=== PATIENT | male | born 1955 | race Caucasian/White ===

== ENCOUNTER 2017-04-26 22:33 | Inpatient (IN) | payer MEDICAID ==
[2017-04-26 22:33] VITALS: BMI 29.5
[2017-04-26] MEDS ORDERED: DiphenhydrAMINE 50 mg/ml Inj IVP STA (22:53)
[2017-04-26] MEDS ORDERED: Albuterol 0.083% Inhal Sol (2.5 mg/3 mL) UD INH STA (22:53)
[2017-04-26] MEDS ORDERED: Sodium Chloride 0.9% 1,000 ML IV STA (22:53)
--- NOTE | 2017-04-26 22:55 | ED PDOC ---
Arrival/HPI - General Chief Complaint: Flu-like Symptoms Time Seen by Provider: 04/26/17 22:46 Historian: Patient - History of Present Illness Narrative History of Present Illness (Text): 04/26/17 22:51 A 62 year old male, whose past medical history includes high platelets, presents to the emergency department complaining of 2 day duration cough, difficulty breathing, and a sudden onset body rash. The patient states that he has been having a fever and the cough for 2 days for which he took Dayquil and Nyquil for his symptoms with no relief. He notes that he also developed a rash over his body that began at his feet and moved up towards his chest. He states that it has been red, hot, and itchy for the past few days. The patient denies chills, headache, dizziness, chest pain, abdominal pain, nausea, vomiting, diarrhea, back pain, neck pain, urinary/bowel changes, or any other complaint. PMD: Dr. Perez Time/Duration: Other (2 days) Symptom Onset: Sudden Symptom Course: Unchanged Activities at Onset: Rest, Light Context: Home Past Medical History - Provider Review Nursing Documentation Reviewed: Yes - Infectious Disease Hx of Infectious Diseases: None - Tetanus Immunization Tetanus Immunization: Unknown - Cardiac Hx Cardiac Disorders: Yes Hx Hypertension: Yes - Pulmonary Hx Respiratory Disorders: No - Neurological Hx Neurological Disorder: No - HEENT Hx HEENT Disorder: No - Renal Hx Renal Disorder: No - Endocrine/Metabolic Hx Endocrine Disorders: No - Hematological/Oncological Hx Blood Disorders: Yes Other/Comment: polycythemia - Integumentary Hx Dermatological Disorder: No - Musculoskeletal/Rheumatological Hx Musculoskeletal Disorders: No - Gastrointestinal Hx Gastrointestinal Disorders: No - Genitourinary/Gynecological Hx Genitourinary Disorders: No - Psychiatric Hx Psychophysiologic Disorder: No Hx Substance Use: No - Past Surgical History Past Surgical History: No Previous - Suicidal Assessment Feels Threatened In Home Enviroment: No Family/Social History - Physician Review Nursing Documentation Reviewed: Yes Family/Social History: No Known Family HX Smoking Status: Former Smoker Hx Alcohol Use: No Hx Substance Use: No Hx Substance Use Treatment: No Allergies/Home Meds Allergies/Adverse Reactions: Allergies No Known Allergies Allergy (Verified 09/11/14 14:28) Home Medications: Home Meds Medication Instructions Recorded Confirmed Aspirin 81 mg PO DAILY 09/11/14 09/11/14 Bisoprolol Fumarate/Hctz 1 tab PO DAILY 09/11/14 04/27/17 [Bisoprolol/Hctz 5 mg-6.25 mg] Hydroxyurea [Hydrea] 1,000 mg PO DAILY 09/11/14 04/27/17 Review of Systems - Physician Review All systems were reviewed & negative as marked: Yes - Review of Systems Constitutional: Fevers. absent: Night Sweats Respiratory: SOB, Cough Cardiovascular: absent: Chest Pain Gastrointestinal: absent: Abdominal Pain, Diarrhea, Nausea, Vomiting Musculoskeletal: absent: Back Pain, Neck Pain Skin: Rash Neurological: absent: Headache, Dizziness Physical Exam Vital Signs Reviewed: Yes Vital Signs Temp Pulse Resp BP Pulse Ox 04/27/17 04:33 98.2 F 71 18 116/74 100 04/27/17 02:33 81 16 100 04/27/17 00:33 74 16 100 04/26/17 22:44 98.4 F 61 20 132/76 98 Temperature: Afebrile Blood Pressure: Normal Pulse: Regular Respiratory Rate: Normal Appearance: Positive for: Well-Appearing, Non-Toxic, Comfortable Pain Distress: None Mental Status: Positive for: Alert and Oriented X 3 - Systems Exam Head: Present: Atraumatic, Normocephalic Pupils: Present: PERRL Extroacular Muscles: Present: EOMI Conjunctiva: Present: Normal Mouth: Present: Moist Mucous Membranes Neck: Present: Normal Range of Motion Respiratory/Chest: Present: Respiratory Distress (Conversationally dyspnic. ), Rhonchi (Rhonchi bilaterally. ) Cardiovascular: Present: Regular Rate and Rhythm, Normal S1, S2. No: Murmurs Abdomen: Present: Normal Bowel Sounds. No: Tenderness, Distention, Peritoneal Signs Back: Present: Normal Inspection Upper Extremity: Present: Normal Inspection. No: Cyanosis, Edema Lower Extremity: Present: Normal Inspection. No: Edema Neurological: Present: GCS=15, CN II-XII Intact, Speech Normal Skin: Present: Other (Urticaria to trunk and extremities. Face and scalp spared. ) Psychiatric: Present: Alert, Oriented x 3, Normal Insight, Normal Concentration Medical Decision Making ED Course and Treatment: 04/26/17 22:58 Impression: A 62 year old male presents to the emergency department complaining of 2 day duration cough, fevers, and sudden onset body rash. Plan: -- Chest X-ray -- Blood Culture -- Labs -- Albuterol, Duoneb, Benadryl, Pepcid, SOLU-Medrol, and IV Fluids -- Reassess and disposition Progress Notes: 04/27/17 01:39: On reevaluation, patient's rash is improving. The rash is not as red , some areas have cleared up and it is less itchy. Patient states that he still feels difficulty breathing. His pO2 on room air is at 60. Will send patient for Angio Chest CT. 04/27/17 01:58: Case discussed with Dr. Barry. 04/27/17 02:32: Dr. Perez stated that the patient may have community acquired pneumonia and will treat patient. Will admit patient to Dr. Perez's service to Telemetry. EKG: Ordered, reviewed, and independently interpreted the EKG. Rate : 80 BPM Rhythm : NSR with PVC's CT Angiography Chest With Intravenous Contrast EXAM DATE/TIME: 04/27/2017 1:25 AM Dictated and Authenticated by: Yen Moreno MD 04/27/2017 4:18 AM Eastern Time ([place] & [place]) IMPRESSION: - Findings highly suspicious for a patchy pneumonia in the right upper lobe. - Otherwise, no evidence of significant acute process. No definite pulmonary embolism. - Cardiomegaly. - See above for remaining findings. - Lab Interpretations Lab Results: 04/26/17 23:55 04/26/17 23:55 Lab Results 04/27/17 00:44: PT 10.8, INR 0.95 04/27/17 00:18: pCO2 38, pO2 62.0 L, HCO3 25.8, ABG pH 7.44, ABG Total CO2 27.0 , ABG O2 Saturation 95.7, ABG Base Excess 1.7, ABG Potassium 4.1, Glucose 134 H , Lactate 1.6, FiO2 21.0, Sodium 138.0, Chloride 104.0, Arterial Blood Potassium 4.1 04/26/17 23:58: Influenza Typ A,B (EIA) Negative for flu a/b 04/26/17 23:55: Sodium 140, Potassium 4.6, Chloride 102, Carbon Dioxide 27, Anion Gap 15, BUN 15, Creatinine 1.0, Est GFR ( Amer) > 60, Est GFR (Non- Af Amer) > 60, Random Glucose 101, Calcium 9.5, Total Bilirubin 0.7, AST 60 H, ALT 64 H, Alkaline Phosphatase 64, Lactate Dehydrogenase 930 H, Total Creatine Kinase 134, Troponin I < 0.01, NT-Pro-B Natriuret Pep 76.4, Total Protein 7.8, Albumin 4.3, Globulin 3.5, Albumin/Globulin Ratio 1.2 04/26/17 23:55: WBC 6.1, RBC 4.17, Hgb 16.4, Hct 48.0, MCV 115.1 H, MCH 39.3 H, MCHC 34.2, RDW 13.8, Plt Count 335, MPV 10.5, Gran % 66.8, Lymph % (Auto) 15.5 L , [place] % (Auto) 13.2 H, Eos % (Auto) 4.3, Baso % (Auto) 0.2, Gran # 4.05, Lymph # (Auto) 0.9 L, [place] # (Auto) 0.8 H, Eos # (Auto) 0.3, Baso # (Auto) 0.01 I have reviewed the lab results: Yes - RAD Interpretation Radiology Orders: 04/26/17 22:53 CHEST TWO VIEWS (PA/LAT) [RAD] Stat 04/27/17 01:25 ANGIO CHEST PE PROTOCOL [CT] Stat - Medication Orders Current Medication Orders: Acetaminophen (Tylenol 325mg Tab) 650 mg PO Q4 PRN PRN Reason: Pain, severe (8-10) Albuterol/Ipratropium (Duoneb 3 Mg/0.5 Mg (3 Ml) Ud) 3 ml IH [id number] [facility] Last Admin: 04/27/17 04:04 Dose: 3 ml Aspirin (Aspirin Chewable) 81 mg PO DAILY [facility] Diphenhydramine HCl (Benadryl) 25 mg IVP Q6H PRN PRN Reason: Itching / Pruritus Guaifenesin/Codeine Phosphate (Robitussin W/Codeine) 5 ml PO Q4H PRN PRN Reason: Cough and congestion Last Admin: 04/27/17 04:08 Dose: 5 ml Heparin Sodium (Porcine) (Heparin) 5,000 units SC Q8 YAMILKA PRN Reason: Protocol Last Admin: 04/27/17 04:08 Dose: 5,000 units Subcutaneous Administrations Document 04/27/17 04:08 PATTY (Rec: 04/27/17 04:08 PATTY [id number]) Charges for Administration # of Subcutaneous Administrations 1 Hydroxyurea (Hydrea) 1,000 mg PO DAILY YAMILKA Ceftriaxone Sodium (Rocephin 1 Gram Ivpb) 1 gm in 100 mls @ 100 mls/hr IVPB DAILY YAMILKA PRN Reason: Protocol Azithromycin (Zithromax 500mg In Ns) 500 mg in 250 mls @ 167 mls/hr IVPB DAILY YAMILKA PRN Reason: Protocol Sodium Chloride (Sodium Chloride 0.9%) 1,000 mls @ 125 mls/hr IV .Q8H YAMILKA Last Admin: 04/27/17 04:08 Dose: 125 mls/hr eMAR Start Stop Document 04/27/17 04:08 PATTY (Rec: 04/27/17 04:09 PATTY [id number]) Intravenous Solution Start Date 04/27/17 Start Time 04:09 Methylprednisolone (Solu-Medrol) 60 mg IVP Q12 [facility] Non-Formulary Medication (Bisoprolol Fumarate/Hctz [Bisoprolol-Hctz 5-6.25 Mg Tab]) 1 tab PO DAILY [facility] Pantoprazole Sodium (Protonix Ec Tab) 40 mg PO 0600 YAMILKA Discontinued Medications Albuterol Sulfate (Albuterol 0.083% Inhal Radha (2.5 Mg/3 Ml) Ud) 5 mg INH STAT STA Stop: 04/26/17 22:54 Last Admin: 04/27/17 00:10 Dose: 5 mg Albuterol/Ipratropium (Duoneb 3 Mg/0.5 Mg (3 Ml) Ud) 3 ml IH STAT STA Stop: 04/26/17 22:54 Last Admin: 04/26/17 23:45 Dose: 3 ml Albuterol/Ipratropium (Duoneb 3 Mg/0.5 Mg (3 Ml) Ud) 3 ml IH Q2H PRN PRN Reason: Shortness of Breath Stop: 04/27/17 04:01 Diphenhydramine HCl (Benadryl) 50 mg IVP STAT STA Stop: 04/26/17 22:54 Last Admin: 04/27/17 00:11 Dose: 50 mg IVP Administration Document 04/27/17 00:11 PATTY (Rec: 04/27/17 00:11 PATTY [id number]) Charges for Administration # of IVP Administrations 1 Famotidine (Pepcid) 40 mg IVP STAT STA Stop: 04/26/17 22:56 Last Admin: 04/27/17 00:11 Dose: 40 mg IVP Administration Document 04/27/17 00:11 PATTY (Rec: 04/27/17 00:11 PATTY [id number]) Charges for Administration # of IVP Administrations 1 Sodium Chloride (Sodium Chloride 0.9%) 1,000 mls @ 999 mls/hr IV .Q1H1M STA Stop: 04/26/17 23:53 Last Admin: 04/27/17 00:14 Dose: 999 mls/hr eMAR Start Stop Document 04/27/17 00:14 PATTY (Rec: 04/27/17 00:14 PATTY [id number]) Intravenous Solution Start Date 04/27/17 Start Time 00:14 Sodium Chloride (Sodium Chloride 0.9%) 1,000 mls @ 999 mls/hr IV .Q1H1M STA Stop: 04/27/17 02:25 Last Admin: 04/27/17 03:05 Dose: 999 mls/hr eMAR Start Stop Document 04/27/17 03:05 PATTY (Rec: 04/27/17 03:05 PATTY [id number]) Intravenous Solution Start Date 04/27/17 Start Time 03:05 End Date 04/27/17 End time 04:05 Total Infusion Time 60 Ceftriaxone Sodium (Rocephin 2 Gm Ivpb) 2 gm in 100 mls @ 100 mls/hr IVPB STAT STA PRN Reason: Protocol Stop: 04/27/17 03:31 Last Admin: 04/27/17 03:05 Dose: 100 mls/hr eMAR Start Stop Document 04/27/17 03:05 PATTY (Rec: 04/27/17 03:06 PATTY [id number]) Intravenous Solution Start Date 04/27/17 Start Time 03:05 End Date 04/27/17 End time 04:05 Total Infusion Time 60 Azithromycin (Zithromax 500mg In Ns) 500 mg in 250 mls @ 167 mls/hr IVPB STAT STA PRN Reason: Protocol Stop: 04/27/17 04:01 Last Admin: 04/27/17 03:46 Dose: 167 mls/hr eMAR Start Stop Document 04/27/17 03:46 PATTY (Rec: 04/27/17 03:46 PATTY [id number]) Intravenous Solution Start Date 04/27/17 Start Time 03:46 End Date 04/27/17 End time 05:16 Total Infusion Time 90 Methylprednisolone (Solu-Medrol) 125 mg IVP STAT STA Stop: 04/26/17 22:54 Last Admin: 04/27/17 00:11 Dose: 125 mg IVP Administration Document 04/27/17 00:11 PATTY (Rec: 04/27/17 00:11 PATTY [id number]) Charges for Administration # of IVP Administrations 1 - PA / FIELD COORDINATOR / Resident Statement MD/DO has reviewed & agrees with the documentation as recorded. - Scribe Statement The provider has reviewed the documentation as recorded by the Amilcaribe Dionne Todd Provider Scribe Attestation: All medical record entries made by the Scribe were at my direction and personally dictated by me. I have reviewed the chart and agree that the record accurately reflects my personal performance of the history, physical exam, medical decision making, and the department course for this patient. I have also personally directed, reviewed, and agree with the discharge instructions and disposition. Disposition/Present on Arrival - Present on Arrival Any Indicators Present on Arrival: No History of DVT/PE: No History of Uncontrolled Diabetes: No Urinary Catheter: No History of Decub. Ulcer: No History Surgical Site Infection Following: None - Disposition Have Diagnosis and Disposition been Completed?: Yes Diagnosis: Pneumonia, Hypoxia, Allergic reaction Disposition: HOSPITALIZED Disposition Time: 04:00 Patient Plan: Admission, Telemetry Patient Problems: Current Active Problems Problem Status Onset Allergic reaction Acute Hypoxia Acute Pneumonia Acute Condition: GOOD
[2017-04-26] MEDS: Albuterol-Ipratrop 3 mg / 0.5 (3 ml) UD IH STA (23:45)
[2017-04-27] MEDS: Albuterol-Ipratrop 3 mg / 0.5 (3 ml) UD IH STA (00:13)
[2017-04-27 00:17] LABS: BASO # 0.01 K/mm3 (0.0-2.0); BASO % 0.2 % (0.0-3.0); EOS # 0.3 (0.0-0.7); EOS % 4.3 % (1.5-5.0); GRAN # 4.05 (1.4-6.5); GRAN % 66.8 % (50.0-68.0); HEMOGLOBIN 16.4 g/dL (14.0-18.0); LYMPH # 0.9 (1.2-3.4); LYMPH % 15.5 % (22.0-35.0); MEAN CELL VOLUME 115.1 fl (80.0-105.0); MEAN CORPUSCULAR HEMOGLOBIN 39.3 pg (25.0-35.0); MEAN CORPUSCULAR HGB CONC 34.2 g/dl (31.0-37.0); MEAN PLATELET VOLUME 10.5 fl (7.0-11.0); MONO # 0.8 (0.1-0.6); MONO % 13.2 % (1.0-6.0); RBC 4.17 10^6/uL (3.5-6.1); RED CELL DISTRIBUTION WIDTH 13.8 % (11.5-14.5); WHITE BLOOD COUNT 6.1 10^3/ul (4.5-11.0)
[2017-04-27 00:33] LABS: B-TYPE NATRIURETIC PEPTIDE 76.4 pg/mL (0-450); TROPONIN I < 0.01 ng/mL
[2017-04-27 00:36] LABS: ALB/GLOB RATIO 1.2 (1.1-1.8); ALBUMIN 4.3 g/dL (3.0-4.8); ALT/SGPT 64 U/L (7-56); AST/SGOT 60 U/L (17-59); BLOOD UREA NITROGEN 15 mg/dL (7-21); CALCIUM 9.5 mg/dL (8.4-10.5); GFR AFRICAN-AMERICAN > 60; GFR NON-AFRICAN AMERICAN > 60
[2017-04-27 00:38] LABS: ARTERIAL BLOOD GAS HCO3 25.8 mmol/L (21-28); ARTERIAL BLOOD GAS O2 SAT 95.7 % (95-98); ARTERIAL BLOOD GAS PCO2 38 mm/Hg (35-45); ARTERIAL BLOOD GAS PH 7.44 (7.35-7.45)
[2017-04-27] MEDS ORDERED: Sodium Chloride 0.9% 1,000 ML IV STA (01:25)
[2017-04-27 01:32] LABS: INR 0.95 (0.93-1.08); PROTHROMBIN TIME 10.8 SECONDS (9.4-12.5)
[2017-04-27] MEDS ORDERED: Iohexol 350 MG/100 ML VIAL ONE (02:10)
[2017-04-27] MEDS ORDERED: Azithromycin 500MG/NS 250ml 500 MG/250 ML BAG IVPB STA (02:32)
[2017-04-27] MEDS ORDERED: cefTRIAXone 2 GM IN NS 2 GM/100 ML BAG IVPB STA (02:32)
[2017-04-27] MEDS ORDERED: Albuterol-Ipratrop 3 mg / 0.5 (3 ml) UD IH PRN (03:22)
--- NOTE | 2017-04-27 03:27 | CP.PCM.CON ---
<Luis Valentin - Last Filed: 04/27/17 03:47> History of Present Illness - History of Present Illness History of Present Illness: ICU consult note: 62 M wuth pmhx of thrombocytosis (on hyroxyurea, dx 8-9 years ago), hx of DVTs, and HTN presents to the ED with cough, chest pain, fever, and rash. Patient states that 3 days ago he started having non productive cough with associated chest pain.During this time he also complains of tactile fevers. He has tried taking Qayquil, Nyquil, and Theraflu which has not relieved his symptoms. Today he noticed an erythematous rash all over his body and it made him come to the ED. He denies any recent change of soaps, or detergent. Denies any new change in medication. Denies any sick contacts or recent travel. 12 Point ROS performed and negative other than stated above PMH: as above PSHx: denies Med: refer to MAR ALL: NKA SH: former smoker 1PPD for 10-15 years, quit 15 years ago, , denies etoh use or drugs FH: denies Review of Systems - Review of Systems All systems: reviewed and no additional remarkable complaints except Past Patient History - Infectious Disease Hx of Infectious Diseases: None - Tetanus Immunizations Tetanus Immunization: Unknown - Past Social History Smoking Status: Former Smoker - CARDIAC Hx Cardiac Disorders: Yes Hx Hypertension: Yes - PULMONARY Hx Respiratory Disorders: No - NEUROLOGICAL Hx Neurological Disorder: No - HEENT Hx HEENT Problems: No - RENAL Hx Chronic Kidney Disease: No - ENDOCRINE/METABOLIC Hx Endocrine Disorders: No - HEMATOLOGICAL/ONCOLOGICAL Hx Blood Disorders: Yes Other/Comment: polycythemia - INTEGUMENTARY Hx Dermatological Problems: No - MUSCULOSKELETAL/RHEUMATOLOGICAL Hx Musculoskeletal Disorders: No - GASTROINTESTINAL Hx Gastrointestinal Disorders: No - GENITOURINARY/GYNECOLOGICAL Hx Genitourinary Disorders: No - PSYCHIATRIC Hx Psychophysiologic Disorder: No Hx Substance Use: No Meds Allergies/Adverse Reactions: Allergies Allergy/AdvReac Type Severity Reaction Status Date / Time No Known Allergies Allergy Verified 09/11/14 14:28 - Medications Medications: Current Medications Ceftriaxone Sodium (Rocephin 2 Gm Ivpb) 2 gm in 100 mls @ 100 mls/hr IVPB STAT STA PRN Reason: Protocol Stop: 04/27/17 03:31 Last Admin: 04/27/17 03:05 Dose: 100 mls/hr Azithromycin (Zithromax 500mg In Ns) 500 mg in 250 mls @ 167 mls/hr IVPB STAT STA PRN Reason: Protocol Stop: 04/27/17 04:01 Physical Exam - Constitutional Appears: No Acute Distress - Head Exam Head Exam: ATRAUMATIC, NORMOCEPHALIC - Eye Exam Eye Exam: EOMI, PERRL - ENT Exam ENT Exam: Mucous Membranes Moist - Respiratory Exam Respiratory Exam: Clear to Auscultation Bilateral, Wheezes. absent: Rales Additional comments: diffuse wheezing - Cardiovascular Exam Cardiovascular Exam: REGULAR RHYTHM, RRR, +S1, +S2 - GI/Abdominal Exam GI & Abdominal Exam: Normal Bowel Sounds, Soft. absent: Distended, Tenderness - Extremities Exam Extremities exam: Negative for: calf tenderness, pedal edema, tenderness - Neurological Exam Neurological exam: Alert, Oriented x3 - Psychiatric Exam Psychiatric exam: Normal Mood - Skin Skin Exam: Dry, Intact, Rash, Warm Additional comments: macular erythematous rash all over body Results - Vital Signs Recent Vital Signs: Last Vital Signs Temp 98.4 F 04/26/17 22:44 Pulse 61 04/26/17 22:44 Resp 20 04/26/17 22:44 BP 132/76 04/26/17 22:44 Pulse Ox 98 04/26/17 22:44 - Labs Result Diagrams: 04/26/17 23:55 04/26/17 23:55 Labs: Laboratory Results - last 24 hr 04/26/17 04/26/17 04/26/17 23:55 23:55 23:58 WBC 6.1 RBC 4.17 Hgb 16.4 Hct 48.0 MCV 115.1 H MCH 39.3 H MCHC 34.2 RDW 13.8 Plt Count 335 MPV 10.5 Gran % 66.8 Lymph % (Auto) 15.5 L [place] % (Auto) 13.2 H Eos % (Auto) 4.3 Baso % (Auto) 0.2 Gran # 4.05 Lymph # (Auto) 0.9 L [place] # (Auto) 0.8 H Eos # (Auto) 0.3 Baso # (Auto) 0.01 PT INR pCO2 pO2 HCO3 ABG pH ABG Total CO2 ABG O2 Saturation ABG Base Excess ABG Potassium Glucose Lactate FiO2 Sodium 140 Potassium 4.6 Chloride 102 Carbon Dioxide 27 Anion Gap 15 BUN 15 Creatinine 1.0 Est GFR ( Amer) > 60 Est GFR (Non-Af Amer) > 60 Random Glucose 101 Calcium 9.5 Total Bilirubin 0.7 AST 60 H ALT 64 H Alkaline Phosphatase 64 Lactate Dehydrogenase 930 H Total Creatine Kinase 134 Troponin I < 0.01 NT-Pro-B Natriuret Pep 76.4 Total Protein 7.8 Albumin 4.3 Globulin 3.5 Albumin/Globulin Ratio 1.2 Arterial Blood Potassium Influenza Typ A,B (EIA) Negative for flu a/b 04/27/17 04/27/17 00:18 00:44 WBC RBC Hgb Hct MCV MCH MCHC RDW Plt Count MPV Gran % Lymph % (Auto) [place] % (Auto) Eos % (Auto) Baso % (Auto) Gran # Lymph # (Auto) [place] # (Auto) Eos # (Auto) Baso # (Auto) PT 10.8 INR 0.95 pCO2 38 pO2 62.0 L HCO3 25.8 ABG pH 7.44 ABG Total CO2 27.0 ABG O2 Saturation 95.7 ABG Base Excess 1.7 ABG Potassium 4.1 Glucose 134 H Lactate 1.6 FiO2 21.0 Sodium 138.0 Potassium Chloride 104.0 Carbon Dioxide Anion Gap BUN Creatinine Est GFR ( Amer) Est GFR (Non-Af Amer) Random Glucose Calcium Total Bilirubin AST ALT Alkaline Phosphatase Lactate Dehydrogenase Total Creatine Kinase Troponin I NT-Pro-B Natriuret Pep Total Protein Albumin Globulin Albumin/Globulin Ratio Arterial Blood Potassium 4.1 Influenza Typ A,B (EIA) Assessment & Plan - Assessment and Plan (Free Text) Assessment: 62 M wuth pmhx of thrombocytosis (on hyroxyurea, dx 8-9 years ago), hx of DVTs, and HTN presents to the ED with cough, chest pain, fever, and rash. ICU consulted for hypoxemia and sob. 1. Hypoxemia 2/2 likely CAP - pO2 of 62 on ABG - Duonebs as needed - 2L nasal cannula as needed - Cont abx - Rocephin and Azithro - f/u CT angio to r/o PE - CXR reviewed - f/u lower ext US - f/u procal - Robitussin prn 2. Atypical chest pain likley 2/2 to coughing - ekg reviewed - f/u serial troponin - Robitussin prn - consider cardiology consult 3. Rash - Pepcid and Benadryl given in the ED - Continue steroids 60mg IV Q12 - cont to monitor 4. Transaminitis - f/u hepatitis panel - consider abdominal imaging - cont to monitor LFTs 5. Hx of erythrocytosis - cont home Hydroxurea 6. HTN - Cont home medication 7. GI/dvt ppx - Protonix and HSQ Patient currently hemodynamicaly stable, saturating well on nasal cannula therefore not requiring ICU at this time. Will cont to monitor. Please reconsult as necessary. Thank you. Case and plan was reviewed and discussed in detail with Dr Barry. <Asha CASAS,Johnathon - Last Filed: 04/27/17 08:59> Meds - Medications Medications: Current Medications Acetaminophen (Tylenol 325mg Tab) 650 mg PO Q4 PRN PRN Reason: Pain, severe (8-10) Albuterol/Ipratropium (Duoneb 3 Mg/0.5 Mg (3 Ml) Ud) 3 ml IH [id number] [facility] Last Admin: 04/27/17 04:04 Dose: 3 ml Aspirin (Aspirin Chewable) 81 mg PO DAILY YAMILKA Budesonide (Pulmicort Respules) 0.5 mg IH [id number] [facility] Diphenhydramine HCl (Benadryl) 25 mg IVP Q6H PRN PRN Reason: Itching / Pruritus Guaifenesin/Codeine Phosphate (Robitussin W/Codeine) 5 ml PO Q4H PRN PRN Reason: Cough and congestion Last Admin: 04/27/17 04:08 Dose: 5 ml Heparin Sodium (Porcine) (Heparin) 5,000 units SC Q8 YAMILKA PRN Reason: Protocol Last Admin: 04/27/17 06:31 Dose: Not Given Hydroxyurea (Hydrea) 1,000 mg PO DAILY [facility] Ceftriaxone Sodium (Rocephin 1 Gram Ivpb) 1 gm in 100 mls @ 100 mls/hr IVPB DAILY YAMILKA PRN Reason: Protocol Azithromycin (Zithromax 500mg In Ns) 500 mg in 250 mls @ 167 mls/hr IVPB DAILY YAMILKA PRN Reason: Protocol Sodium Chloride (Sodium Chloride 0.9%) 1,000 mls @ 125 mls/hr IV .Q8H [facility] Last Admin: 04/27/17 04:08 Dose: 125 mls/hr Methylprednisolone (Solu-Medrol) 60 mg IVP Q12 [facility] Bisoprolol-Hctz 5-6. (25 Mg (Home Med)) 1 tab PO DAILY [facility] Pantoprazole Sodium (Protonix Ec Tab) 40 mg PO 0600 YAMILKA Last Admin: 04/27/17 06:32 Dose: 40 mg Results - Vital Signs Recent Vital Signs: Last Vital Signs Temp 98.9 F 04/27/17 08:46 Pulse 83 04/27/17 08:46 Resp 17 04/27/17 08:46 BP 131/84 04/27/17 08:46 Pulse Ox 99 04/27/17 08:46 - Labs Result Diagrams: 04/26/17 23:55 04/26/17 23:55 Labs: Laboratory Results - last 24 hr 04/27/17 04/27/17 04/27/17 04:00 04:00 04:00 ESR 8 pCO2 pO2 HCO3 ABG pH ABG Total CO2 ABG O2 Saturation ABG Base Excess ABG Potassium Sodium Chloride Glucose Lactate FiO2 POC Glucose (mg/dL) Lactate Dehydrogenase 689 Total Creatine Kinase 118 Troponin I < 0.01 TSH 3rd Generation 3.90 Arterial Blood Potassium 04/27/17 04/27/17 08:15 08:20 ESR pCO2 33 L pO2 79.0 L HCO3 19.5 L ABG pH 7.38 ABG Total CO2 20.5 L ABG O2 Saturation 98.0 ABG Base Excess -4.7 L ABG Potassium 3.2 L Sodium 140.0 Chloride 109.0 H Glucose 143 H Lactate 2.7 H FiO2 21.0 POC Glucose (mg/dL) 126 H Lactate Dehydrogenase Total Creatine Kinase Troponin I TSH 3rd Generation Arterial Blood Potassium 3.2 L Attending/Attestation - Attestation I have personally seen and examined this patient.: Yes I have fully participated in the care of the patient.: Yes I have reviewed all pertinent clinical information: Yes Notes (Text): -I agree with the above ICU evaluation completed by the resident physician with the following additions and/or changes: -The patient is a 62 year old man with a history of thrombocytosis (diagnosed 8 years ago), DVT (s/p treatment course with Xaralto in 2016) and a remote history of chronic tobacco use who presents with acute SOB, cough and hypoxemia likely due to community acquired pneumonia. He also presents with what appears to be an allergic rash (source unclear). CT-PA was negative for PE. Given his normal vitals, he doesn't require ICU level of care at this time. However, to ensure the patient remains stable overnight, the following basic admitting orders will be placed: IV antibiotics, Duo-nebs, serial trops and EKGs, IV Solumedrol and a bilateral lower extremity Doppler U/S. Also, a pulmonary consult has been placed. Please feel free to re-consult if the patient deteriorates. Thank you for the consult.
[2017-04-27] MEDS ORDERED: methylPREDNISolone 60 MG in Sodium Chloride 0.9% 100 ML IVPB SCH (03:45)
[2017-04-27] MEDS: Albuterol-Ipratrop 3 mg / 0.5 (3 ml) UD IH SCH ×5 (04:04→19:59)
[2017-04-27] MEDS: Sodium Chloride 0.9% 1,000 ML IV SCH ×3 (04:08→21:11)
[2017-04-27] MEDS: guaiFENesin-Codeine 100-10mg/5ml Syrup (5 ml) UD PO PRN ×5 (04:08→21:20)
--- NOTE | 2017-04-27 04:18 | CT ---
EXAM: CT Angiography Chest With Intravenous Contrast EXAM DATE/TIME: 04/27/2017 1:25 AM CLINICAL HISTORY: 62 years old, male; Abnormal findings; Abnormal pulmonary function test; Additional info: Po2 = 60 on room air blood gas TECHNIQUE: Axial computed tomographic angiography images of the chest with intravenous contrast using pulmonary embolism protocol. All CT scans at this facility use one or more dose reduction techniques, viz.: automated exposure control; ma/kV adjustment per patient size (including targeted exams where dose is matched to indication; i.e. head); or iterative reconstruction technique. MIP reconstructed images were created and reviewed. Coronal and sagittal reformatted images were created and reviewed. CONTRAST: 96 mL of OMNI 350 administered intravenously. COMPARISON: Chest radiographs done earlier on the same day, at 01:00 hours FINDINGS: LIMITATIONS: Mild respiratory motion artifact. PULMONARY ARTERIES: Exam is somewhat limited for the detection of pulmonary emboli secondary to respiratory motion. Allowing for this, no definite pulmonary emboli are seen. AORTA: No evidence of aortic dissection. LUNGS: Patchy areas of consolidation in the right upper lobe, highly suspicious for pneumonia. There is a very small area of consolidation in the left upper lobe as well. No evidence of diffuse pulmonary vascular congestion. PLEURAL SPACE: No pneumothorax or pleural effusions seen. HEART: Heart appears moderately enlarged, particularly the right heart chambers. enlarged. No evidence of significant pericardial effusion. BONES/JOINTS: No acute fractures or other acute bony abnormality visualized. SOFT TISSUES: Bilateral gynecomastia. LYMPH NODES: No evidence of diffuse lymphadenopathy. IMPRESSION: - Findings highly suspicious for a patchy pneumonia in the right upper lobe. - Otherwise, no evidence of significant acute process. No definite pulmonary embolism. - Cardiomegaly. - See above for remaining findings.
[2017-04-27 05:08] LABS: TROPONIN I < 0.01 ng/mL
[2017-04-27] MEDS: Pantoprazole 40 mg EC Tab PO SCH (06:32)
[2017-04-27] MEDS ORDERED: Influenza Vaccine 60 mcg/0.5 mL SYR (4YR UP) IM ONE (07:17)
[2017-04-27] MEDS ORDERED: Pneumococcal 23-Valent Vaccine IM ONE (07:17)
[2017-04-27 08:26] LABS: ARTERIAL BLOOD GAS HCO3 19.5 mmol/L (21-28); ARTERIAL BLOOD GAS PCO2 33 mm/Hg (35-45); ARTERIAL BLOOD GAS PH 7.38 (7.35-7.45); ARTERIAL BLOOD GAS TCO2 20.5 mmol.L (22-28)
--- NOTE | 2017-04-27 09:21 | RAD ---
HISTORY: cough and fever COMPARISON: No prior. TECHNIQUE: Chest PA and lateral FINDINGS: LUNGS: No radiographic evidence of focal infiltrate or consolidation in the lungs PLEURA: No significant pleural effusion identified. No pneumothorax apparent. CARDIOVASCULAR: Normal. OSSEOUS STRUCTURES: No significant abnormalities. VISUALIZED UPPER ABDOMEN: Normal. OTHER FINDINGS: None. IMPRESSION: No radiographic evidence of pneumonia.
[2017-04-27] MEDS: DiphenhydrAMINE 50 mg/ml Inj IVP PRN (09:31)
--- NOTE | 2017-04-27 11:18 | CON ---
DATE: 04/27/2017 PULMONARY CONSULTATION REASON FOR CONSULTATION: Pneumonia. REFERRING PHYSICIAN: Giovany Perez DO HISTORY OF PRESENT ILLNESS: The patient is a 62-year-old male, with past medical history significant for thrombocytosis (on hydroxyurea), history of deep venous thrombosis, hypertension, who presents to [facility] ([facility]) with worsening shortness of breath at rest, dyspnea on exertion, and cough for the past 5 days. The patient denies significant sputum production. The patient also denies chest pain, coughing up of blood, or chest pain - made worse with deep respirations. The patient did state to fevers at home. No history of chills or infectious exposure. No history of night sweats, weight loss or appetite change prior to the above events. No history of leg or calf pains. No history of syncope or diaphoresis. No history of recent travel or trauma. REVIEW OF SYSTEMS: The patient does state to the development of a rash in the past 2 days. No nausea, vomiting or diarrhea. No acute urinary symptoms. No new neurologic or musculoskeletal complaints. Rest of the review of systems is negative. ALLERGIES: NO KNOWN ALLERGIES. SOCIAL HISTORY: Positive for former tobacco usage. No alcohol. FAMILY HISTORY: No inheritable diseases. HOME MEDICATIONS: Include Hydrea, and bisoprolol/hydrochlorothiazide and aspirin. PHYSICAL EXAMINATION GENERAL: The patient appears comfortable. He is not short of breath at rest. VITAL SIGNS: Temperature is 98.2, pulse 71, respirations 18/20, blood pressure 116/74. Oxygen saturation on room air is 96%. HEENT: Normocephalic, atraumatic. No JVD. CARDIOVASCULAR: Positive S1, S2. No S3 gallop. LUNGS: Decreased breath sounds at the bases. Scattered bilateral rhonchi and wheezing are present. EXTREMITIES: No clubbing, cyanosis or edema. Calves are nontender to palpation. GI: Abdomen is soft, nontender and nondistended. Bowel sounds are positive. SKIN: Reveals a mild erythematous rash on his trunk and extremities. NEUROLOGIC: Limited at the present time. PERTINENT LABORATORY DATA: CAT scan of the chest was done as an angiogram protocol. There is no pulmonary embolism noted. There is a small patchy infiltrate noted at the right apex. There is no lymphadenopathy. CBC: White count 6.1, hemoglobin 16.4, hematocrit 48.0, platelets of 335,000. Arterial blood gas was done on room air. Results are: PH 7.44, pCO2 of 38, pO2 of 62. Complete metabolic profile: AST 60, ALT 64, LDH 930. Rest of the metabolic profiles within normal limits. IMPRESSION: 1. Right upper lobe pneumonia. 2. Acute bronchitis. 3. Hypoxemia. 4. Chronic thrombocytosis. PLAN: The patient presents to [facility] ([facility] with a 5-day history of worsening pulmonary symptoms. I did review the CAT scan of the chest. The CAT scan of the chest reveals a small patchy right apical infiltrate. Again, there is no lymphadenopathy. The patient has been pancultured and started on antibiotic therapy. He has not had any fevers in the hospital. On physical exam, the patient is in moderate bronchospasm. I will continue the current nebulizer treatments and intravenous steroids for now. I will also add inhaled Pulmicort this morning. The patient does feel better and is clinically improved this morning - compared to the past few days. Additional pulmonary intervention will be based on the clinical status of the patient. I did discuss the above with Dr. Perez at length. Thank you very much for this pulmonary consultation. Eyad Mina MD BUNNY
--- NOTE | 2017-04-27 11:52 | US ---
HISTORY: Leg pain and swelling. Evaluate for DVT PHYSICIAN(S): Shon Tim MD. TECHNIQUE: Duplex sonography and color-flow Doppler with graded compression were used to evaluate the deep venous systems of both lower extremities. FINDINGS: The visualized deep venous systems of both lower extremities are sonographically normal and compressible. Normal wave forms and augmentation are seen. There is no sonographic evidence for deep venous thrombosis in the visualized segments of both lower extremities. IMPRESSION: No sonographic evidence for deep venous thrombosis in the visualized segments of both lower extremities.
[2017-04-27 12:05] LABS: TROPONIN I < 0.01 ng/mL
[2017-04-27 12:39] LABS: HEPATITIS B SURFACE AG Negative (NEGATIVE)
[2017-04-27 12:46] LABS: HEPATITIS A IGM NEGATIVE (NEGATIVE); HEPATITIS B CORE AB NEGATIVE (NEGATIVE)
[2017-04-27 12:57] LABS: HEPATITIS C ANTIBODY NEGATIVE (NEGATIVE)
[2017-04-27 13:18] LABS: FOLATE > 20.0 ng/mL
[2017-04-27 13:28] LABS: VENOUS BLOOD GAS BASE EXCESS -0.6 mmol/L (0.0-2.0); VENOUS BLOOD GAS PO2 42 mm/Hg (30-55); VENOUS BLOOD PH 7.37 (7.32-7.43)
[2017-04-27] MEDS ORDERED: Vancomycin 1gm in NS 250ml 1 GM/250 ML BAG IVPB SCH (17:15)
--- NOTE | 2017-04-27 17:18 | CP.PCM.CON ---
History of Present Illness - History of Present Illness History of Present Illness: 62 year old male with PMH of DVT's, HTN, history of thrombocytosis came in to [facility] [place] because of cough, fever. He also developed a generalized rash 3 days ago, which is starting to improve. He has dry cough which he had last week which improved after he was prescribed LEvaquin for 5 days. It then came back 3 days ago. He denies headache or dizziness, no insect bites or animal contacts, denies eating anything out of the ordinary, no abdominal pain, no chest pain, no sore throat, no muscle aches, no diarrhea, no dysuria. In the ED, CT chest was done which showed upper lobe pneumonia. Infectious diseases consult is requested to further evaluate and manage. Review of Systems - Review of Systems All systems: reviewed and no additional remarkable complaints except (as per HPI ) Past Patient History - Infectious Disease Hx of Infectious Diseases: None - Tetanus Immunizations Tetanus Immunization: Unknown - Past Social History Smoking Status: Former Smoker - CARDIAC Hx Cardiac Disorders: Yes Hx Hypertension: Yes - PULMONARY Hx Respiratory Disorders: No - NEUROLOGICAL Hx Neurological Disorder: No - HEENT Hx HEENT Problems: No - RENAL Hx Chronic Kidney Disease: No - ENDOCRINE/METABOLIC Hx Endocrine Disorders: No - HEMATOLOGICAL/ONCOLOGICAL Hx Blood Disorders: Yes Other/Comment: polycythemia - INTEGUMENTARY Hx Dermatological Problems: No - MUSCULOSKELETAL/RHEUMATOLOGICAL Hx Musculoskeletal Disorders: No Hx Falls: No - GASTROINTESTINAL Hx Gastrointestinal Disorders: No - GENITOURINARY/GYNECOLOGICAL Hx Genitourinary Disorders: No - PSYCHIATRIC Hx Psychophysiologic Disorder: No Hx Substance Use: No - SURGICAL HISTORY Hx Surgeries: No Meds Allergies/Adverse Reactions: Allergies Allergy/AdvReac Type Severity Reaction Status Date / Time No Known Allergies Allergy Verified 09/11/14 14:28 - Medications Medications: Current Medications Acetaminophen (Tylenol 325mg Tab) 650 mg PO Q4 PRN PRN Reason: Pain, severe (8-10) Albuterol/Ipratropium (Duoneb 3 Mg/0.5 Mg (3 Ml) Ud) 3 ml IH [id number] [facility] Last Admin: 04/27/17 04:04 Dose: 3 ml Aspirin (Aspirin Chewable) 81 mg PO DAILY [facility] Last Admin: 04/27/17 09:13 Dose: 81 mg Budesonide (Pulmicort Respules) 0.5 mg IH [id number] [facility] Diphenhydramine HCl (Benadryl) 25 mg IVP Q6H PRN PRN Reason: Itching / Pruritus Guaifenesin/Codeine Phosphate (Robitussin W/Codeine) 5 ml PO Q4H PRN PRN Reason: Cough and congestion Last Admin: 04/27/17 09:16 Dose: 5 ml Heparin Sodium (Porcine) (Heparin) 5,000 units SC Q8 [id number] PRN Reason: Protocol Last Admin: 04/27/17 06:31 Dose: Not Given Hydroxyurea (Hydrea) 1,000 mg PO DAILY [facility] Last Admin: 04/27/17 09:13 Dose: 1,000 mg Ceftriaxone Sodium (Rocephin 1 Gram Ivpb) 1 gm in 100 mls @ 100 mls/hr IVPB DAILY [facility] PRN Reason: Protocol Azithromycin (Zithromax 500mg In Ns) 500 mg in 250 mls @ 167 mls/hr IVPB DAILY [facility] PRN Reason: Protocol Sodium Chloride (Sodium Chloride 0.9%) 1,000 mls @ 125 mls/hr IV .Q8H [facility] Last Admin: 04/27/17 04:08 Dose: 125 mls/hr Methylprednisolone (Solu-Medrol) 60 mg IVP Q12 [facility] Last Admin: 04/27/17 09:19 Dose: 60 mg Bisoprolol-Hctz 5-6. (25 Mg (Home Med)) 1 tab PO DAILY [facility] Pantoprazole Sodium (Protonix Ec Tab) 40 mg PO 0600 [facility] Last Admin: 04/27/17 06:32 Dose: 40 mg Physical Exam - Constitutional Appears: Non-toxic, No Acute Distress - Head Exam Head Exam: NORMAL INSPECTION - ENT Exam ENT Exam: Mucous Membranes Moist - Neck Exam Neck exam: Negative for: Meningismus - Respiratory Exam Respiratory Exam: Decreased Breath Sounds - Cardiovascular Exam Cardiovascular Exam: +S1, +S2 - GI/Abdominal Exam GI & Abdominal Exam: Soft. absent: Tenderness - Skin Skin Exam: Rash (maculopapular, erythematous, on abdomen, chest, legs) Results - Vital Signs Recent Vital Signs: Last Vital Signs Temp 98.9 F 04/27/17 08:46 Pulse 83 04/27/17 08:46 Resp 17 04/27/17 08:46 BP 131/84 04/27/17 08:46 Pulse Ox 99 04/27/17 08:46 - Labs Result Diagrams: 04/26/17 23:55 04/26/17 23:55 Labs: Laboratory Results - last 24 hr 04/27/17 04/27/17 04/27/17 04:00 04:00 04:00 ESR 8 pCO2 pO2 HCO3 ABG pH ABG Total CO2 ABG O2 Saturation ABG Base Excess ABG Potassium Sodium Chloride Glucose Lactate FiO2 POC Glucose (mg/dL) Lactate Dehydrogenase 689 Total Creatine Kinase 118 Troponin I < 0.01 TSH 3rd Generation 3.90 Arterial Blood Potassium 04/27/17 04/27/17 08:15 08:20 ESR pCO2 33 L pO2 79.0 L HCO3 19.5 L ABG pH 7.38 ABG Total CO2 20.5 L ABG O2 Saturation 98.0 ABG Base Excess -4.7 L ABG Potassium 3.2 L Sodium 140.0 Chloride 109.0 H Glucose 143 H Lactate 2.7 H FiO2 21.0 POC Glucose (mg/dL) 126 H Lactate Dehydrogenase Total Creatine Kinase Troponin I TSH 3rd Generation Arterial Blood Potassium 3.2 L Assessment & Plan - Assessment and Plan (Free Text) Plan: Assessment Consider right upper lobe pneumonia, healthcare-associated maculopapular rash, R/O allergic reaction DVT's HTN history of thrombocytosis Plan Started patient on Vancomycin ,zithromax and cefepime pending blood, sputum cx, PCT; reviewed CT chest which showed the patch infiltrates on the right upper lobe with no associated lymphadenopathy continue benadryl will get HIV test and hepatitis profile will monitor clinically
[2017-04-27 17:23] LABS: TROPONIN I < 0.01 ng/mL
[2017-04-27 17:34] LABS: VENOUS BLOOD GAS BASE EXCESS -0.3 mmol/L (0.0-2.0); VENOUS BLOOD GAS PO2 50 mm/Hg (30-55); VENOUS BLOOD PH 7.41 (7.32-7.43)
[2017-04-27] MEDS: Cefepime IV 2 gm in NS 2 GM/100 ML BAG IVPB SCH ×2 (17:54→22:05)
[2017-04-27] MEDS: BISOPROLOL HCTZ PO SCH (17:55)
[2017-04-27] MEDS: Budesonide 0.5 mg/2 ml Inhal Susp UD IH SCH (20:00)
--- NOTE | 2017-04-27 20:43 | HP ---
HISTORY OF PRESENT ILLNESS: from the office. He is now in the emergency room. He comes in with difficulty breathing for 2 days' duration with a cough, also a body rash. He was recently on antibiotics a couple of weeks ago. He also has a history of high platelets, hypertension, polycythemia. FAMILY HISTORY: No known family history. SOCIAL HISTORY: Former smoker. No alcohol. No drugs. ALLERGIES: NO KNOWN DRUG ALLERGIES. MEDICATIONS: He is on aspirin, bisoprolol and hydrochlorothiazide, Hydrea. REVIEW OF SYSTEMS: No acute vision changes or hearing changes, having some fevers. He is short of breath with a cough production with sputum. No chest pain or palpitations. No abdominal pain, nausea, vomiting, constipation, or diarrhea. No back pain. No neck pain. He does have a rash around his body, it is sandpaper like. He is not sure why he has had the antibiotics 2 weeks ago. No other new medications or foods. No headaches or dizziness. He is very short of breath and coughing. PHYSICAL EXAMINATION: GENERAL: He is well appearing, nontoxic, comfortable in the emergency room, alert and oriented x3. VITAL SIGNS: He has a 98.4 temperature, 61 pulse, 20 respiratory rate, 132/76 blood pressure, 98% O2 sat on room air. HEENT: His head is atraumatic, normocephalic. Extraocular muscles are intact. Pupils equal and reactive to light and accommodation. Throat is moist. NECK: Supple. HEART: Regular rate. Normal S1, S2. LUNGS: Congestion bilaterally. He gets a little tired with talking and has a lot of congestion, sounds like a pneumonia. ABDOMEN: Soft, nontender. Positive bowel sounds. No guarding, no rebound, no CVA tenderness. EXTREMITIES: Have no edema. NEUROLOGIC: GCS is 15. Cranial nerves II through XII grossly intact. Speech is normal. He does have a rash across his trunk and legs and arms. He is alert and oriented x3. LYMPH NODES: Thyroid midline. No palpable appreciable lymphadenopathy at this time. LABORATORY DATA: He had multiple tests. He is negative for flu. Sodium 140, potassium 4.6, BUN 15, creatinine 1. GFR is greater than 60. Sugar is 101. Calcium is 9.5. Total bili is 0.7, AST is 60, ALT is 64, alk phos 64. Lactate dehydrogenase is 930, that came down to 689. Troponin is less than 0.01. BNP is 76.4. Total protein 7.8, albumin is 4.3. TSH is 3.9. On the blood gases, he has a 2.7 lactate. INR is 0.95. He has 6.1 white count, 16.4 hemoglobin, 48 hematocrit with 335 platelets. He has a CAT scan of the chest, which showed highly suspicious for patchy pneumonia of the right upper lobe they called down intensive care unit for evaluation and I believe he is going to go to the intensive care unit. ASSESSMENT AND PLAN: He has consults with Pulmonology, Infectious Disease, and he will go to intensive care unit. He is on albuterol, aspirin, Benadryl, his blood pressure meds, DuoNebs, heparin, Hydrea, Pepcid, Protonix, Rocephin 2 g, IV fluids. He is on Solu-Medrol 60 IV q.12, azithromycin IV. We will check his labs tomorrow, be in the Intensive care unit. He is here for a few things; pneumonia, thrombocytosis, elevated liver enzymes, hypertension, rash. I will see him tomorrow. Giovany Perez DO MTDD
--- NOTE | 2017-04-27 23:29 | CARD ---
APPROVED REPORT EKG Measurement Heart [id number] <Conclusion> Sinus rhythm with premature atrial complexes Inferior infarct, age undetermined Abnormal ECG
[2017-04-28] MEDS: Albuterol-Ipratrop 3 mg / 0.5 (3 ml) UD IH SCH ×6 (01:29→19:32)
[2017-04-28] MEDS: Sodium Chloride 0.9% 1,000 ML IV SCH (04:47)
[2017-04-28] MEDS: Pantoprazole 40 mg EC Tab PO SCH (05:57)
[2017-04-28] MEDS: Cefepime IV 2 gm in NS 2 GM/100 ML BAG IVPB SCH ×3 (05:57→21:18)
[2017-04-28] MEDS: Budesonide 0.5 mg/2 ml Inhal Susp UD IH SCH ×2 (07:21→19:32)
[2017-04-28] MEDS: guaiFENesin-Codeine 100-10mg/5ml Syrup (5 ml) UD PO PRN ×2 (07:45→21:15)
[2017-04-28 08:13] LABS: HEMOGLOBIN 14.2 g/dL (14.0-18.0); MEAN CELL VOLUME 114.4 fl (80.0-105.0); MEAN CORPUSCULAR HEMOGLOBIN 37.8 pg (25.0-35.0); MEAN PLATELET VOLUME 10.5 fl (7.0-11.0); RBC 3.76 10^6/uL (3.5-6.1); RED CELL DISTRIBUTION WIDTH 13.9 % (11.5-14.5); WHITE BLOOD COUNT 10.2 10^3/ul (4.5-11.0)
[2017-04-28 08:36] LABS: ALB/GLOB RATIO 1.2 (1.1-1.8); ALBUMIN 3.7 g/dL (3.0-4.8); ALT/SGPT 59 U/L (7-56); AST/SGOT 48 U/L (17-59); BLOOD UREA NITROGEN 14 mg/dL (7-21); CALCIUM 9.1 mg/dL (8.4-10.5); GFR AFRICAN-AMERICAN > 60; GFR NON-AFRICAN AMERICAN > 60
[2017-04-28] MEDS: Vancomycin 1gm in NS 250ml 1 GM/250 ML BAG IVPB SCH ×2 (09:48→21:15)
[2017-04-28] MEDS ORDERED: cefTRIAXone 1 gm 1 GM/100 ML BAG IVPB SCH (10:00)
[2017-04-28] MEDS: BISOPROLOL HCTZ PO SCH (10:35)
[2017-04-28] MEDS ORDERED: Albuterol-Ipratrop 3 mg / 0.5 (3 ml) UD IH PRN (11:02)
[2017-04-28] MEDS: Azithromycin 500MG/NS 250ml 500 MG/250 ML BAG IVPB SCH (11:16)
--- NOTE | 2017-04-28 12:00 | RAD ---
HISTORY: PNA/ SOB COMPARISON: April 27, 2017. FINDINGS: LUNGS: No active pulmonary disease. PLEURA: No significant pleural effusion identified, no pneumothorax apparent. CARDIOVASCULAR: Cardiomegaly. No evidence of acute, significant cardiovascular disease. OSSEOUS STRUCTURES: No significant abnormalities. VISUALIZED UPPER ABDOMEN: Normal. OTHER FINDINGS: None. IMPRESSION: No active pulmonary disease, no change.
[2017-04-28 12:07] LABS: HEPATITIS B SURFACE AG Negative (NEGATIVE)
[2017-04-28 12:13] LABS: HEPATITIS A IGM NEGATIVE (NEGATIVE)
[2017-04-28 12:25] LABS: HEPATITIS C ANTIBODY NEGATIVE (NEGATIVE)
[2017-04-28] MEDS: Sodium Chloride 0.45% 1,000 ML IV SCH (13:26)
--- NOTE | 2017-04-28 16:36 | CARD ---
APPROVED REPORT EKG Measurement Heart [id number] <Conclusion> Sinus rhythm with frequent premature ventricular complexes in a pattern of bigeminy Otherwise normal ECG
[2017-04-28] MEDS: DiphenhydrAMINE 50 mg/ml Inj IVP PRN (22:44)
[2017-04-29] MEDS: guaiFENesin-Codeine 100-10mg/5ml Syrup (5 ml) UD PO PRN ×2 (01:14→09:14)
[2017-04-29] MEDS: Albuterol-Ipratrop 3 mg / 0.5 (3 ml) UD IH SCH ×6 (01:20→19:34)
--- NOTE | 2017-04-29 01:26 | PN ---
04/29/2017DATE: 04/28/2017 SUBJECTIVE: The patient is in bed, in no acute distress. Patient was seen early this morning in room 367, bed 2. PHYSICAL EXAMINATION: VITAL SIGNS: Temperature is 98, T-max is 100.2, blood pressure is 130/80, respiratory rate of 16. HEENT: Unremarkable. NECK: Supple. LUNGS: Have decreased breath sounds. HEART: Normal S1 and S2. ABDOMEN: Soft. Nontender. LABORATORY DATA: Reveals a white count of 10, hemoglobin of 14, platelets of 332. Chemistries revealed a BUN of 14, creatinine of 0.7. ASSESSMENT AND PLAN: This is a 62-year-old with right upper lobe pneumonia, healthcare associated, with a maculopapular rash, probable allergic reaction, deep venous thrombosis, hypertension and on vancomycin, Zithromax and cefepime. Patient's procalcitonin is less than 0.05. Review of medications reveals the patient is on cefepime, Solu-Medrol, vancomycin and azithromycin. Patient's HIV is negative. Hepatitis profile is negative. Influenza is negative. We will follow the rash. Readjust the antibiotics in next 24 hours. Beto Avila MD
[2017-04-29] MEDS: Pantoprazole 40 mg EC Tab PO SCH (05:02)
[2017-04-29] MEDS: Cefepime IV 2 gm in NS 2 GM/100 ML BAG IVPB SCH ×2 (05:02→13:09)
[2017-04-29 06:36] LABS: HEMOGLOBIN 15.2 g/dL (14.0-18.0); MEAN CELL VOLUME 113.7 fl (80.0-105.0); MEAN CORPUSCULAR HEMOGLOBIN 38.6 pg (25.0-35.0); MEAN CORPUSCULAR HGB CONC 33.9 g/dl (31.0-37.0); MEAN PLATELET VOLUME 10.4 fl (7.0-11.0); RBC 3.94 10^6/uL (3.5-6.1); RED CELL DISTRIBUTION WIDTH 13.9 % (11.5-14.5); WHITE BLOOD COUNT 8.5 10^3/ul (4.5-11.0)
[2017-04-29 06:42] LABS: ALB/GLOB RATIO 1.2 (1.1-1.8); ALBUMIN 3.9 g/dL (3.0-4.8); ALT/SGPT 67 U/L (7-56); AST/SGOT 65 U/L (17-59); BLOOD UREA NITROGEN 17 mg/dL (7-21); GFR AFRICAN-AMERICAN > 60; GFR NON-AFRICAN AMERICAN > 60
[2017-04-29] MEDS: Budesonide 0.5 mg/2 ml Inhal Susp UD IH SCH ×2 (07:47→19:34)
[2017-04-29] MEDS: BISOPROLOL HCTZ PO SCH (09:14)
[2017-04-29] MEDS: Sodium Chloride 0.45% 1,000 ML IV SCH ×2 (09:18→10:30)
[2017-04-29] MEDS: Azithromycin 500MG/NS 250ml 500 MG/250 ML BAG IVPB SCH (09:18)
[2017-04-29] MEDS ORDERED: Pneumococcal 23-Valent Vaccine IM ONE (10:00)
[2017-04-29] MEDS ORDERED: Influenza Vaccine 60 mcg/0.5 mL SYR (4YR UP) IM ONE (10:00)
[2017-04-29] MEDS: Vancomycin 1gm in NS 250ml 1 GM/250 ML BAG IVPB SCH ×2 (10:28→21:24)
[2017-04-29] MEDS: Promethazine/Cod 6.25mg-10mg/5ml Syr UD PO SCH (21:23)
[2017-04-29] MEDS: DiphenhydrAMINE 50 mg/ml Inj IVP PRN (21:32)
[2017-04-30] MEDS: Albuterol-Ipratrop 3 mg / 0.5 (3 ml) UD IH SCH ×6 (00:53→20:13)
--- NOTE | 2017-04-30 02:58 | PN ---
DATE: 04/29/2017 SUBJECTIVE: The patient was seen early this morning in 367, bed 2. The patient is doing well. He states he is feeling much better. No fevers, no chills. His rash is improved. PHYSICAL EXAMINATION: VITAL SIGNS: Temperature is 99, T-max is 100.4, blood pressure is 120/70, respiratory rate of 20, heart rate of 75. HEENT: Unremarkable. NECK: Supple. LUNGS: Have decreased breath sounds. HEART: Normal S1, S2. ABDOMEN: Soft. LABORATORY DATA: Reveals white count is 8.5, hemoglobin of 15. Chemistries reveal a BUN of 17, creatinine of 0.8. The patient's procalcitonin is 0.05. Immunology is noted and serology is noted and hepatitis negative and influenza is negative. Microbiology reveals the blood cultures no growth after 48 hours. Patient's chest x-ray, no active lung disease. Review of orders reveals the patient to be on vancomycin, cefepime, azithromycin. ASSESSMENT AND PLAN: A 62-year-old male, who was seen earlier this morning with a past medical history of deep venous thrombus, hypertension, thrombocytosis, admitted with cough and fever, generalized rash 3 days ago, which started to improve, and dry cough and the patient was prescribed Levaquin for 5 days, most likely an allergic reaction. The patient with systemic inflammatory response syndrome. Patient had a CAT scan of the chest, which shows findings highly suspicious of a patchy pneumonia in right upper lobe and blood cultures with no growth. We will discontinue the antibiotics of vancomycin, cefepime and azithromycin and start doxycycline fever. Patient is clinically nontoxic. We will follow closely with you. Beto Avila MD
[2017-04-30] MEDS: guaiFENesin-Codeine 100-10mg/5ml Syrup (5 ml) UD PO PRN ×4 (05:14→20:10)
[2017-04-30] MEDS: Pantoprazole 40 mg EC Tab PO SCH (05:14)
[2017-04-30 06:40] LABS: HEMOGLOBIN 15.4 g/dL (14.0-18.0); MEAN CELL VOLUME 113.5 fl (80.0-105.0); MEAN CORPUSCULAR HEMOGLOBIN 37.9 pg (25.0-35.0); MEAN CORPUSCULAR HGB CONC 33.4 g/dl (31.0-37.0); MEAN PLATELET VOLUME 10.7 fl (7.0-11.0); RBC 4.06 10^6/uL (3.5-6.1); RED CELL DISTRIBUTION WIDTH 13.8 % (11.5-14.5)
[2017-04-30 06:43] LABS: ALB/GLOB RATIO 1.1 (1.1-1.8); ALBUMIN 3.6 g/dL (3.0-4.8); ALT/SGPT 69 U/L (7-56); AST/SGOT 54 U/L (17-59); BLOOD UREA NITROGEN 18 mg/dL (7-21); GFR AFRICAN-AMERICAN > 60; GFR NON-AFRICAN AMERICAN > 60
[2017-04-30] MEDS: Budesonide 0.5 mg/2 ml Inhal Susp UD IH SCH ×2 (07:58→20:13)
--- NOTE | 2017-04-30 08:31 | PN ---
DATE: 04/28/2017 SUBJECTIVE: He had a very bad morning. He had some chest pain. There was a little bit of a rapid response, called the [facility] doctor, who came and ordered some tests. He is doing a little bit better now, but he could not feed this morning. Lots of coughing and back pain. We are also going to check his blood pressure. The chest x-ray shows improvement. He did have a rash when he came in and the rash is all gone now. I am not sure where they came from, but he is uncomfortable with some chest pain, shortness of breath from time to time. PHYSICAL EXAMINATION: VITAL SIGNS: He has a 100.6 temp, 69 pulse, 122/73 blood pressure, 18 respiratory rate, 94% O2 sat on 2 L nasal cannula. HEENT: Head is atraumatic, normocephalic. Throat is moist. NECK: Supple. HEART: Regular rate. LUNGS: Decreased breath sounds bilaterally, but clear. ABDOMEN: Soft, morbidly obese, nontender. EXTREMITIES: No edema. MEDICATIONS: He is currently on aspirin, Benadryl, , hydrochlorothiazide, DuoNebs, heparin, Hydrea, Maxipime, Protonix, Pulmicort, Robitussin, IV fluids, Solu-Medrol, Tylenol, vancomycin, azithromycin. I will decrease the IV fluid rate. LABORATORY DATA: He has a white count of 10.2, hemoglobin 14.2, hematocrit 43, platelets of 332. His lactate was as high as 4, it is down to 2.6, still high, but coming down. Sodium 138, potassium 4.2, BUN 14, creatinine 0.7, GFR is greater than 60, sugar is 25, calcium is 9.1, total bili is 0.3, AST is 48, ALT is 59, alk phos is 58. The troponin today was less than 0.01. With all the chest pain he is having, troponin is all less than 0.01. Total protein 6.7. So his chest is not related to his heart at this time. His hepatitis A, B, C; HIV and flu were all negative. No growth. Chest x-ray showed improved. ASSESSMENT AND PLAN: He is being seen by Infectious Disease and Pulmonary. We are going to check his labs tomorrow. He has got Tylenol; decrease the intravenous fluids and hopefully he will continue to improve and feel better. He has pneumonia, thrombocytosis, rash, high LFTs, hypertension, right pneumonia and I think the rash is improved greatly. Giovany Perez DO MTDVangie
--- NOTE | 2017-04-30 08:36 | PN ---
DATE: 04/28/2017 PULMONARY PROGRESS NOTE SUBJECTIVE: The patient was seen and examined at bedside. He complains of right upper chest pain on deep inspiration and frequent cough. I checked his today's blood work. His WBC is up 10.2, hemoglobin is 14.2. The chemistries are normal. PHYSICAL EXAMINATION: VITAL SIGNS: His temperature maximum 100.1, currently 98.4; pulse is 80; respirations 18; pulse oximetry is 94 on nasal cannula. HEAD, EYES, EARS, NOSE, AND THROAT: Within normal limits. NECK: Supple with no jugular vein distention. CHEST: Symmetrical. HEART: S1, S2. No S3. Regular. LUNGS: Few rhonchi bilaterally, right more than left. EXTREMITIES: No pedal edema. GASTROINTESTINAL: Soft, nontender, no organomegaly. ASSESSMENT: 1. Right upper lobe pneumonia. 2. Acute bronchitis. 3. Hypoxemia. 4. Thrombocytosis. PLAN: The patient was started on broad antibiotic coverage with azithromycin and vancomycin. He was also given high doses of intravenous steroids that can be tapered. His CT scan reveals small patchy infiltrate in the right upper lobe. He is afebrile. Continue with current medication and addition of Codeine-based cough syrup. Vladimir Armstrong MD
--- NOTE | 2017-04-30 09:00 | PN ---
DATE: 04/29/2017 SUBJECTIVE: I saw him resting in bed. He did not have a good night. He is actually exhausted. He was up whole night coughing. He is having back pain now from the coughing on the ribs. He does not feel well although if we look at him, he is still a little bit better than yesterday. He is on IV fluids, aspirin, Benadryl,, hydrochlorothiazide, DuoNeb, heparin, Hydrea, cefepime, Protonix, Pulmicort, Robitussin, Solu-Medrol, vancomycin and azithromycin. I decreased his Solu-Medrol to 40 q. 12. I decreased his IV fluids also from 60 to 40 mL an hour. I added promethazine with codeine at night time to help him sleep and also stop the cough, to give him some more energy may be in the next day. I encouraged him to use best he can. He has 100.4 temp, 94 pulse, 146/96 blood pressure, 20 respiratory rate and 96% O2 sat on room air. I am going to add some more blood pressure medication to him. He is currently taking and hydrochlorothiazide. I am going to add some Diovan 80 mg day. He is trying to eat better, but very exhausted. LABORATORY DATA: He has a white count 8.5, hemoglobin of 15.2, hematocrit 44.8 and platelet of 328. He has 136 sodium, potassium 4.3, BUN 17, creatinine 0.8, sugar is 170, calcium is 9, total bili is 0.5, AST of 65, ALT of 67, alk phos 58, troponin less than 0.01, total protein 7.2. are pending. He is being seen by Infectious Disease, supposed to be seen by Pulmonary, they had not been to the chart We will add codeine at nighttime to sleep, decreased the Solu-Medrol, decreased his IV fluids, for pneumonia, thrombocytosis, hypertension. Still having very time. Giovany Perez DO BUNNY
--- NOTE | 2017-04-30 10:05 | PN ---
DATE: 04/30/2017 PULMONARY NOTE SUBJECTIVE: The patient appears comfortable at rest. He is not short of breath. PHYSICAL EXAMINATION VITAL SIGNS: Temperature is 98.5, pulse 68, respirations 18/20, blood pressure 119/56. Oxygen saturation on nasal cannula is 95%-96%. HEENT: Normocephalic, atraumatic. No JVD. CARDIOVASCULAR: Positive S1, S2. No S3 gallop. LUNGS: Improved breath sounds at the bases. Still with bilateral rhonchi and wheezing - but less. EXTREMITIES: No clubbing, cyanosis or edema. Calves are nontender to palpation. GI: Abdomen is soft, nontender and nondistended. Bowel sounds are positive. SKIN: Less rash - trunk and extremities. NEUROLOGIC: Limited at the present time. PERTINENT LABORATORY DATA: Chest x-ray was last done on 04/28/2017 and reviewed. There is no acute disease noted. IMPRESSION: 1. Right upper lobe pneumonia. 2. Acute bronchitis. 3. Hypoxemia. 4. Chronic thrombocytosis. PLAN: The patient appears comfortable this morning. He is not short of breath at rest. He does state to feeling better overall. He is still coughing, but less. On physical exam, the patient remains in mild bronchospasm. I will continue the current nebulizer treatments and intravenous steroids for now. I would also continue with the antibiotic coverage as per Infectious Disease. Input by Dr. Avila is noted. The temperatures have now fully resolved. Repeat a.m. labs are pending. Clinical status of the patient is certainly improved. I will discuss the above with Dr. Perez. Eyad Mina MD MTDD
[2017-04-30] MEDS: BISOPROLOL HCTZ PO SCH (11:21)
[2017-04-30] MEDS: Sodium Chloride 0.45% 1,000 ML IV SCH (11:29)
--- NOTE | 2017-04-30 12:54 | PN ---
DATE: SUBJECTIVE: I saw him in bed this morning. He did sleep a little bit better last night with the codeine, but from 5 ' o clock this morning on, he has been coughing still. He still has this cough that he cannot control and he is feeling tired. PHYSICAL EXAMINATION VITAL SIGNS: He has a 98.5 temperature, 75 pulse, 119/86 blood pressure, 20 respiratory rate, 95% O2 sat on room air. HEENT: His head is atraumatic, normocephalic. HEART: Regular rate. LUNGS: Congestion bilaterally with wheezes and rhonchi. Changes with cough. ABDOMEN: Soft, obese. EXTREMITIES: No edema. I discussed this with the mantel craftsman this morning, saw him. He is on aspirin, Benadryl, Cozaar, doxycycline, DuoNebs, Hydrea, Phenergan at bedtime with Codeine, Protonix, Robitussin at nighttime with Codeine, IV fluids, Solu-Medrol 40 mg b.i.d., Tessalon Perles, Tylenol. LABORATORY DATA: He has a 9 white count, 15.4 hemoglobin, 46.1 hematocrit and 302,000 platelets. Sodium 137, potassium is 4.4, BUN 18, creatinine 0.8, GFR is greater than 60. Sugar is 123. Calcium is 9, total bili is 0.5, AST is 54, AST is 69, alkaline phosphatase 55. Troponin less than 0.01, total protein 6.8. ASSESSMENT AND PLAN: He is being seen by Infectious Disease, Cardiopulmonary. He had a chest x-ray yesterday. No active pulmonary disease which is good despite how bad lung sound is, SIRS, patchy pneumonia in the right upper lobe which is better, on antibiotics vancomycin, cefepime, azithromycin, doxycycline. Continue aggressive treatment and care on this nice man, Brant Ramsay. Giovany Perez DO MTDVangie
--- NOTE | 2017-04-30 13:36 | CARD ---
APPROVED REPORT EKG Measurement Heart [id number] <Conclusion> Sinus rhythm with premature atrial complexes with aberrant conduction Otherwise normal ECG
--- NOTE | 2017-04-30 16:46 | CP.PCM.PN ---
Subjective - Date & Time of Evaluation Date of Evaluation: 04/30/17 Time of Evaluation: 09:50 - Subjective Subjective: Patient is still having cough but a little less, no fevers overnight, rash is slowly improving. Objective - Vital Signs/Intake and Output Vital Signs (last 24 hours): Temp Pulse Resp BP Pulse Ox 98.7 F 68 20 131/84 98 04/30/17 08:54 04/30/17 08:54 04/30/17 08:54 04/30/17 08:54 04/30/17 08:54 Intake and Output: 04/30/17 04/30/17 06:59 18:59 Intake Total 1020 Output Total 1000 Balance 20 - Medications Medications: Current Medications Acetaminophen (Tylenol 325mg Tab) 650 mg PO Q4 PRN PRN Reason: Pain, severe (8-10) Last Admin: 04/29/17 21:24 Dose: 650 mg Albuterol/Ipratropium (Duoneb 3 Mg/0.5 Mg (3 Ml) Ud) 3 ml IH [id number] [facility] Last Admin: 04/30/17 07:58 Dose: 3 ml Albuterol/Ipratropium (Duoneb 3 Mg/0.5 Mg (3 Ml) Ud) 3 ml IH Q2H PRN PRN Reason: Shortness of Breath Aspirin (Aspirin Chewable) 81 mg PO DAILY [facility] Last Admin: 04/29/17 09:16 Dose: 81 mg Benzonatate (Tessalon Perles) 100 mg PO TID [facility] Last Admin: 04/29/17 17:29 Dose: 100 mg Budesonide (Pulmicort Respules) 0.5 mg IH [id number] [facility] Last Admin: 04/30/17 07:58 Dose: 0.5 mg Diphenhydramine HCl (Benadryl) 25 mg IVP Q6H PRN PRN Reason: Itching / Pruritus Last Admin: 04/29/17 21:32 Dose: 25 mg Doxycycline Hyclate (Doryx) 100 mg PO Q12 [facility] PRN Reason: Protocol Stop: 05/08/17 22:01 Last Admin: 04/29/17 23:57 Dose: 100 mg Guaifenesin/Codeine Phosphate (Robitussin W/Codeine) 5 ml PO Q4H PRN PRN Reason: Cough and congestion Last Admin: 04/30/17 05:14 Dose: 5 ml Hydroxyurea (Hydrea) 1,000 mg PO DAILY [facility] Last Admin: 04/29/17 09:16 Dose: 1,000 mg Sodium Chloride (Sodium Chloride 0.45%) 1,000 mls @ 40 mls/hr IV .Q24H [facility] Last Admin: 04/29/17 10:30 Dose: 40 mls/hr Losartan Potassium (Cozaar) 50 mg PO DAILY [facility] Last Admin: 04/29/17 10:40 Dose: Not Given Methylprednisolone (Solu-Medrol) 40 mg IVP Q12 [facility] Last Admin: 04/29/17 21:22 Dose: 40 mg Bisoprolol-Hctz 5-6. (25 Mg (Home Med)) 1 tab PO DAILY [facility] Last Admin: 04/29/17 09:14 Dose: 1 tab Pantoprazole Sodium (Protonix Ec Tab) 40 mg PO 0600 [facility] Last Admin: 04/30/17 05:14 Dose: 40 mg Promethazine HCl/Codeine (Phenergan/Codeine Oral Syrup) 5 ml PO HS [facility] Last Admin: 04/29/17 21:23 Dose: 5 ml - Labs Labs: 04/30/17 06:00 04/30/17 06:00 PT 10.8 SECONDS (9.4-12.5) 04/27/17 00:44 INR 0.95 (0.93-1.08) 04/27/17 00:44 - Constitutional Appears: Non-toxic - Head Exam Head Exam: NORMAL INSPECTION - ENT Exam ENT Exam: Mucous Membranes Moist - Neck Exam Neck Exam: absent: Meningismus - Respiratory Exam Respiratory Exam: Decreased Breath Sounds - Cardiovascular Exam Cardiovascular Exam: +S1, +S2 - GI/Abdominal Exam GI & Abdominal Exam: Soft. absent: Tenderness Assessment and Plan - Assessment and Plan (Free Text) Plan: Assessment Consider right upper lobe pneumonia, healthcare-associated maculopapular rash, R/O allergic reaction DVT's HTN history of thrombocytosis Plan PCT is low, cultures have been negative - continue Doxycycline (day 4) to complete up to 7 days of therapy continue benadryl HIV test is non-reactive
[2017-04-30] MEDS: Promethazine/Cod 6.25mg-10mg/5ml Syr UD PO SCH (22:51)
[2017-05-01] MEDS: Albuterol-Ipratrop 3 mg / 0.5 (3 ml) UD IH SCH ×6 (00:49→20:08)
[2017-05-01] MEDS: guaiFENesin-Codeine 100-10mg/5ml Syrup (5 ml) UD PO PRN ×5 (01:58→18:01)
[2017-05-01] MEDS: Pantoprazole 40 mg EC Tab PO SCH (05:54)
[2017-05-01 07:12] LABS: HEMOGLOBIN 15.6 g/dL (14.0-18.0); MEAN PLATELET VOLUME 10.7 fl (7.0-11.0); RBC 4.1 10^6/uL (3.5-6.1); RED CELL DISTRIBUTION WIDTH 13.5 % (11.5-14.5); WHITE BLOOD COUNT 8.3 10^3/ul (4.5-11.0)
[2017-05-01] MEDS: Budesonide 0.5 mg/2 ml Inhal Susp UD IH SCH (07:36)
[2017-05-01 07:42] LABS: ALB/GLOB RATIO 1.3 (1.1-1.8); ALBUMIN 3.9 g/dL (3.0-4.8); ALT/SGPT 81 U/L (7-56); AST/SGOT 52 U/L (17-59); BLOOD UREA NITROGEN 17 mg/dL (7-21); CALCIUM 9.2 mg/dL (8.4-10.5); GFR AFRICAN-AMERICAN > 60; GFR NON-AFRICAN AMERICAN > 60
[2017-05-01] MEDS: BISOPROLOL HCTZ PO SCH (10:17)
[2017-05-01] MEDS: MethylPREDNISolone 40 mg Vial IVP SCH ×2 (10:18→22:00)
--- NOTE | 2017-05-01 10:43 | PN ---
DATE: 05/01/2017 PULMONARY NOTE SUBJECTIVE: The patient appears very comfortable this morning. He is not short of breath at rest. PHYSICAL EXAMINATION: VITAL SIGNS: Temperature is 97.4, pulse is 66, respirations 18, blood pressure 113/79. Oxygen saturation on nasal cannula is 96%. HEENT: Normocephalic, atraumatic. No JVD. CARDIOVASCULAR: Positive S1, S2. No S3 gallop. LUNGS: Much less rhonchi. No wheezing this morning. EXTREMITIES: No clubbing, cyanosis or edema. Calves are nontender to palpation. GASTROINTESTINAL: Abdomen is soft, nontender and nondistended. Bowel sounds are positive. SKIN: Less rash - trunk and extremities. NEUROLOGIC: Exam limited at the present time. IMPRESSION: 1. Right upper lobe pneumonia. 2. Acute bronchitis. 3. Hypoxemia. 4. Chronic thrombocytosis. PLAN: Patient appears very comfortable this morning. He is not short of breath at rest. He is coughing much less. He does state to feeling much better overall. On physical exam, there is a significant decrease in the bronchospasm. I will continue the current nebulizer treatments and decrease the intravenous steroids this morning. I would continue with the antibiotic coverage as per Infectious Disease. Input by Dr. Quispe is noted. The temperatures have now fully resolved. Clinical status of the patient is significantly improved. I did discuss the above with Dr. Perez. Eyad Mina MD MTDD
[2017-05-01] MEDS: Sodium Chloride 0.45% 1,000 ML IV SCH (17:34)
[2017-05-01] MEDS: Promethazine/Cod 6.25mg-10mg/5ml Syr UD PO SCH (22:03)
[2017-05-02] MEDS: Albuterol-Ipratrop 3 mg / 0.5 (3 ml) UD IH SCH ×4 (00:29→11:35)
[2017-05-02 00:56] VITALS: O2SAT 95
--- NOTE | 2017-05-02 04:12 | PN ---
SUBJECTIVE: The patient is in bed in no acute distress. PHYSICAL EXAMINATION: VITAL SIGNS: Temperature of 101.8, respiratory rate of 20, heart rate of 95. HEENT: Unremarkable. NECK: Supple. LUNGS: Decreased breath sounds. HEART: Normal S1 and S2. ABDOMEN: Soft. LABORATORY DATA: Reveals a white count of 8.3. Chemistries are noted. Immunology is reviewed. Serology is noted. Review of orders revealed the patient to be on p.o. doxycycline. note is reviewed today. ASSESSMENT AND PLAN: This is a 62-year-old male who was seen earlier this morning lying there comfortably. He states he feels well and no shortness of breath. There is right upper lobe pneumonia healthcare associated, maculopapular rash and deep venous thrombosis, hypertension, and thrombocytosis. He is currently day #5 of doxycycline. The patient did have a fever today earlier. We will follow closely with you. Beto Avila MD
[2017-05-02] MEDS: Pantoprazole 40 mg EC Tab PO SCH (05:35)
[2017-05-02] MEDS: guaiFENesin-Codeine 100-10mg/5ml Syrup (5 ml) UD PO PRN ×2 (05:38→10:25)
[2017-05-02 06:58] LABS: MEAN CELL VOLUME 111.9 fl (80.0-105.0); MEAN CORPUSCULAR HEMOGLOBIN 38.1 pg (25.0-35.0); MEAN PLATELET VOLUME 10.6 fl (7.0-11.0); RBC 3.94 10^6/uL (3.5-6.1); RED CELL DISTRIBUTION WIDTH 13.3 % (11.5-14.5); WHITE BLOOD COUNT 6.5 10^3/ul (4.5-11.0)
[2017-05-02 07:21] LABS: ALB/GLOB RATIO 1.1 (1.1-1.8); ALBUMIN 3.4 g/dL (3.0-4.8); ALT/SGPT 60 U/L (7-56); AST/SGOT 46 U/L (17-59); BLOOD UREA NITROGEN 16 mg/dL (7-21); CALCIUM 8.6 mg/dL (8.4-10.5); GFR AFRICAN-AMERICAN > 60; GFR NON-AFRICAN AMERICAN > 60
[2017-05-02] MEDS: Budesonide 0.5 mg/2 ml Inhal Susp UD IH SCH (08:01)
--- NOTE | 2017-05-02 08:47 | PN ---
DATE: 05/01/2017 SUBJECTIVE: I saw him this morning, sitting up in bed, reading news paper, the best I have seen him. No coughing. No congestion. No shortness of breath. Overall, he looks brand new. He has had aspirin 81 mg, Benadryl, Cozaar, Doryx, DuoNeb, Hydrea, Phenergan DM, Protonix, Pulmicort, Robitussin with codeine, IV fluids, Solu-Medrol down to 30, Tessalon, and Tylenol. He has multiple questions to me from his . PHYSICAL EXAMINATION: VITAL SIGNS: He has 98.4 temperature, 71 pulse, 121/85 blood pressure, 18 respiratory rate, 95% O2 sat on 2 L nasal cannula. HEENT: Head is atraumatic, normocephalic. HEART: Regular rate. LUNGS: Decreased breath sounds, but clear. No wheezes, rhonchi, or rales. Clear bilaterally. Cannot believe it. ABDOMEN: Soft, nontender. Positive bowel sounds. Obese. EXTREMITIES: No edema. LABORATORY DATA: He has 8.3 white count, 15.6 hemoglobin, 45.9 hematocrit with 390 platelets. He has 135 sodium, potassium 4.1. BUN 17, creatinine 0.7. GFR is greater than 60. Sugar is 128. Calcium is 9.2. Total bili is 0.5, AST is 52, ALT is 81, alk phos 58, total protein 6.9. His troponin is less than 0.01. I discussed this with the assistant nurse manager. This is the best he has been. He is also being seen by Infectious Disease. The plan is to discharge him tomorrow. We will change him over to tablets, prednisone as we can get out of the hospital. He should do very well. We will check his labs tomorrow. He has SIRS, right upper pneumonia. Giovany Perez DO
[2017-05-02] MEDS: MethylPREDNISolone 40 mg Vial IVP SCH (09:05)
[2017-05-02] MEDS: BISOPROLOL HCTZ PO SCH (09:06)
[2017-05-02 11:26] VITALS: BP 121/84; RESP 18; TEMP 98.3
--- NOTE | 2017-05-02 11:53 | PN ---
DATE: 05/02/2017 PULMONARY NOTE SUBJECTIVE: The patient appears very comfortable this morning. He is not short of breath at rest. PHYSICAL EXAMINATION: VITAL SIGNS: Temperature is 98.0, pulse this morning 80, respirations 18, blood pressure 121/91. Oxygen saturation on room air is 95%. HEENT: Normocephalic, atraumatic. No JVD. CARDIOVASCULAR: Positive S1, S2. No S3 gallop. LUNGS: Much less rhonchi. No wheezing. EXTREMITIES: No clubbing, cyanosis or edema. Calves are nontender to palpation. GI: Abdomen is soft, nontender and nondistended. Bowel sounds are positive. SKIN: Less rash - trunk and extremities. NEUROLOGIC: Limited at the present time. IMPRESSION: 1. Right upper lobe pneumonia. 2. Acute bronchitis. 3. Hypoxemia - resolved. 4. Chronic thrombocytosis. PLAN: The patient appears very comfortable this morning. He is not short of breath at rest. He does state to feeling much better overall. On physical exam, his bronchospasm continues to resolve. In addition, the alveolar arterial gradient also continues to resolve. Oxygen saturation on room air is now 95%. I would continue with the antibiotic coverage as per Infectious Disease. Input by Dr. Avila is noted. The clinical status of the patient is significantly improved overall. The patient is for probable discharge in the near future. He will be discharged on oral antibiotic therapy (as per Infectious Disease), as well as oral prednisone. I did discuss the above with Dr. Perez. Eyad Mina MD MTDD
[2017-05-02 14:59] VITALS: PULSE 76
--- NOTE | 2017-05-02 21:17 | PN ---
DATE: SUBJECTIVE: The patient is seen in bed, in no acute distress, nontoxic. The patient was seen earlier this morning. PHYSICAL EXAMINATION: VITAL SIGNS: Temperature is 98, blood pressure is 120/80, respiratory rate of 18, heart rate of 75. HEENT: Unremarkable. NECK: Supple. LUNGS: Decreased breath sounds. HEART: Normal S1 and S2. ABDOMEN: Soft, nontender. Examination of the mild infiltration. LABORATORY DATA: Reveals a white count of 6.5, hemoglobin of 15, platelets of 302. Chemistry reveals a BUN of 16, creatinine of 0.7. Urinalysis is noted. Serology reviewed. ASSESSMENT AND PLAN: He is a 62-year-old male, who is seen earlier this morning in bed comfortably. We should see Dr. Giovany Perez, case was discussed with him. The patient with right upper lobe pneumonia, maculopapular rash, deep venous thrombosis. On day #6 of doxycycline. Patient did have a low-grade fever, may have been from the IV infiltration. We will follow with you. Case discussed with Dr. Giovany Perez. Beto Avila MD
--- NOTE | 2017-05-03 00:29 | CON ---
DATE: 05/02/2017 CARDIOLOGY CONSULTATION HISTORY OF PRESENT ILLNESS: The patient is a 62-year-old male, who presented with upper respiratory infection. He took multiple [id number] medications. He was found to have occasional palpitations and PVCs on telemetry. PAST MEDICAL HISTORY: Includes a history of beta-blockers and hydrochlorothiazide for his hypertension. No diabetes mellitus. SOCIAL HISTORY: He is a former smoker. REVIEW OF SYSTEMS: Fourteen-point review of systems was reviewed in detail. No angina. No shortness of breath. Occasional palpitations, both at rest and during exertion. Negative edema. No previous myocardial infarction. PHYSICAL EXAMINATION: VITAL SIGNS: Blood pressure 121/84, heart rates in the 70s. NECK: Negative JVD. LUNGS: Without rales. HEART: Reveals S1, S2. EXTREMITIES: Without edema. LABORATORY DATA: Glucose is 133. Troponins negative x1. IMPRESSION: 1. Benign palpitations. 2. Occasional premature ventricular contractions. 3. Hypertension. 4. Borderline diabetes mellitus. 5. Macrocytic indices PLAN: Given these findings, the patient's upper respiratory symptoms are improved. The patient can be discharged today. Given his cardiac risk factors, I have discussed with the patient about an outpatient elective cardiac workup, which would be included a stress test and which the patient has agreed. Shon Schmitz MD
--- NOTE | 2017-05-03 07:32 | DS ---
HISTORY OF PRESENT ILLNESS: I saw him resting comfortably in bed today. He slept well. His cough is better, breathing better. He did have a temperature last night for one moment then went away. Discussed it with Dr. Avila and felt it could have been an IV access area. He is already on antibiotics. He also had a run of bigeminy. We need to see Dr. Schmitz, the braddisher, has to say. He is on IV fluids, aspirin, diphenhydramine, Cozaar, he will be on doxycycline for another 7 days, DuoNebs, Hydrea, cough medicines, Pulmicort, should be on prednisone 40 mg for 3 days, 30 mg for 3 days, 20 mg for 3 days and 10 mg for 3 days and then, he stopped it. He will be on Tessalon Perles. PHYSICAL EXAMINATION VITAL SIGNS: He has a 98 temp now with his highest 101.8, 75 pulse, 121/91 blood pressure, 20 respiratory rate, 95% O2 saturation on room air. HEENT: Head is atraumatic, normocephalic. Throat is moist. NECK: Supple. HEART: Regular rate. LUNGS: Clear to auscultation clear bilaterally. ABDOMEN: Soft , nontender. Positive bowel sounds. EXTREMITIES: No edema. The left hand had a little area of redness where he had an IV access that could be the cause of the fever. LABORATORY DATA: White count 6.5, hemoglobin 15, hematocrit 44.1, platelets are 302,000. The CBC is good, on steroids. He has 135 sodium, potassium 4. BUN 16, creatinine 0.7. GFR is greater than 60. Sugar is 133. Calcium is 8.6. Total bilirubin is 0.5, AST is 46, ALT is 60, alkaline phosphatase is 57, total protein 6.4. Troponin is less than 0.01. PLAN: The plan for him is to be discharged today if it is okay with Dr. Schmitz. He had right pneumonia. He had a rash. He had LFTs elevated. He had hypertension. He had bigeminy. He has been quite sick, he will be on prednisone and will be on doxycycline. He will be seen in my office in two days, likely discharge him today. Giovany Perez DO BUNNY
== END 2017-05-02 15:24 | disposition home or self-care (01) | DRG 89 ==
LOC: ED 22:33 → ERH 04-27 03:04 → 3RNO 04-27 10:26
PROVIDERS: ADMIT Family Medicine; ATTEND Family Medicine
PROC: 3E0F7GC Introduction of Other Therapeutic Substance into Respiratory Tract, Via Natural or Artificial Opening (ICD-10-PCS; principal; 2017-04-27)
DX: J18.9 Pneumonia, unspecified organism (principal); R09.02 Hypoxemia; I10 Essential (primary) hypertension; J20.9 Acute bronchitis, unspecified; R21 Rash and other nonspecific skin eruption; R73.03 Prediabetes; I49.3 Ventricular premature depolarization; Z86.718 Personal history of other venous thrombosis and embolism; Z87.891 Personal history of nicotine dependence

== ENCOUNTER 2018-04-04 07:32 | Outpatient (CLI) | payer MEDICAID | END 2018-04-04 07:33 | disposition home or self-care (01) | LOC: CARDIO 07:32 ==

== ENCOUNTER 2018-04-06 07:50 | Outpatient (CLI) | payer MEDICAID | END 2018-04-06 07:51 | disposition home or self-care (01) | LOC: RAD 07:50 | DX: I10 Essential (primary) hypertension (principal); J02.8 Acute pharyngitis due to other specified organisms; J45.998 Other asthma ==

== ENCOUNTER 2018-04-27 10:27 | Outpatient (CLI) | payer MEDICAID | END 2018-04-27 10:28 | disposition home or self-care (01) | LOC: LAB 10:27 ==

== ENCOUNTER 2018-05-18 08:06 | Outpatient (CLI) | payer MEDICAID | END 2018-05-18 08:07 | disposition home or self-care (01) | LOC: RAD 08:06 ==